=== PATIENT | male | born 1975 | race Two or more races ===

== ENCOUNTER 2016-08-17 13:58 | Emergency (ER) | payer SELFPAY ==
[~2016-08-17] VITALS: Ht 180.3 cm; Wt 77.2 kg
[2016-08-17 14:04] VITALS: BP 116/77
== END 2016-08-17 14:36 | disposition home or self-care (01) ==
LOC: ED 14:30
DX: T23.51 Corrosion of first degree of thumb (nail) (principal); Y93.I9 Activity, other involving external motion; Y92.488 Other paved roadways as the place of occurrence of the external cause; Y99.8 Other external cause status
CPT/HCPCS: 99283